=== PATIENT | male | born 2000 | race Two or more races ===

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

== ENCOUNTER 2022-01-09 14:38 | Emergency (ER) | payer OTHER, SELFPAY ==
[~2022-01-09] VITALS: Ht 185.4 cm; Wt 88.9 kg
[2022-01-09 14:40] VITALS: BP 126/76
== END 2022-01-09 16:34 | disposition home or self-care (01) ==
LOC: M ED 14:38
DX: S00.01XA Abrasion of scalp, initial encounter (principal); W26.8XXA Contact with other sharp object(s), not elsewhere classified, initial encounter; Y92.9 Unspecified place or not applicable; Y93.9 Activity, unspecified; Y99.1 Military activity; R42 Dizziness and giddiness